=== PATIENT | female | born 1985 | race African-American/Black ===

== ENCOUNTER → 2020-03-25 10:03 | Outpatient (CLI) | payer OTHER, SELFPAY ==
[2020-03-25 11:48] LABS: Creatinine Urine Random 156.1 mg/dL; Protein (Total) Urine Random 8 mg/dL (0-12); Protein Creatinine Ratio Urine 0.05 GRAM/24H
[2020-03-25 12:45] LABS: Add Manual Diff / Slide Review NO; Basophils Absolute Auto 0 /uL (0-100); Basophils Percent Auto 0.1 % (0-2); Eosinophils Absolute Auto 100 /uL (0-450); Hematocrit 29.1 % (36-46); Hemoglobin 9.6 g/dL (12.0-16.0); Lymphocytes Absolute Auto 1300 /uL (1100-4500); Mean Corpuscular Hemoglobin 28.9 PG (26-34); Mean Corpuscular Volume 87.5 fL (80-100); Monocytes Absolute Auto 500 /uL (0-900); Monocytes Percent Auto 6.8 % (3-14); Neutrophils Absolute Auto 6000 /uL (1500-7000); Neutrophils Percent Auto 76.1 % (50-75); Platelet Count 247 X10^3/uL (150-400); Red Blood Cell Count 3.33 X10^6/uL (4.0-5.2); Red Cell Distribution Width 14.7 % (11.6-14.8); White Blood Cell Count 7.9 X10^3/uL (4.5-11.0)
[2020-03-25 13:04] LABS: Alanine Aminotransferase 11 IU/L (<35); Alkaline Phosphatase 97 U/L (38-126); Aspartate Aminotransferase 16 IU/L (14-36); BUN Creatinine Ratio 10.9 (6-22); Bilirubin Total 0.3 mg/dL (0.2-1.3); Blood Urea Nitrogen 5 mg/dL (7-17); Calcium 8.7 mg/dL (8.4-10.2); Carbon Dioxide 25 mmol/L (22-32); Chloride 104 mmol/L (98-107); Estimated Glomerular Filt Rate > 60.0 mL/min (>60); GTT (PREG) 1 Hour PP 50gm Dose 141 mg/dL (76-139); Globulin 2.9 g/dL (1.7-4.1); Glucose 141 mg/dL (70-100); HEMOLYSIS < 15 (0-50); Lactate Dehydrogenase 345 U/L (313-618); Potassium 3.6 mmol/L (3.4-5.1); Sodium 131 mmol/L (137-145); Total Protein 5.9 g/dL (6.3-8.2)
== END ==
PROVIDERS: Referring Provider Obstetrics & Gynecology; Visit Provider Obstetrics & Gynecology
DX: O99.212 Obesity complicating pregnancy, second trimester (principal); Z3A.26 26 weeks gestation of pregnancy; Z87.59 Personal history of other complications of pregnancy, childbirth and the puerperium; Z98.891 History of uterine scar from previous surgery
CPT/HCPCS: 36415; 80053; 82570; 82950; 83615; 84156; 84550; 85025

== ENCOUNTER → 2020-04-08 07:08 | Outpatient (CLI) | payer OTHER, SELFPAY ==
[2020-04-08 08:17] LABS: Glucose Fasting 92 mg/dL (70-100)
[2020-04-08 08:42] LABS: Glucose 1 Hour 155 mg/dL (70-170)
[2020-04-08 10:26] LABS: Glucose Tol Interpretation INTERPRETATION
[2020-04-08 10:47] LABS: Glucose 2 Hour 140 mg/dL (70-140)
[2020-04-08 12:19] LABS: Glucose 3 Hour 152 mg/dL (70-115)
== END ==
PROVIDERS: Referring Provider Obstetrics & Gynecology; Visit Provider Obstetrics & Gynecology
DX: O99.810 Abnormal glucose complicating pregnancy (principal)
CPT/HCPCS: 36415; 82951; 82952

== ENCOUNTER → 2020-04-09 10:23 | Outpatient (CLI) | payer OTHER, SELFPAY | PROVIDERS: Visit Provider Obstetrics & Gynecology | DX: Z34.83 Encounter for supervision of other normal pregnancy, third trimester (principal); R82.4 Acetonuria; R82.2 Biliuria; Z3A.30 30 weeks gestation of pregnancy | CPT/HCPCS: 87086 ==

== ENCOUNTER → 2020-05-16 15:41 | Outpatient (CLI) | payer OTHER, SELFPAY ==
[2020-05-17 12:02] LABS: Strep Grp B PCR POS for Grp B Strep
== END ==
PROVIDERS: Visit Provider Specialist
DX: Z34.83 Encounter for supervision of other normal pregnancy, third trimester (principal); Z3A.36 36 weeks gestation of pregnancy
CPT/HCPCS: 87653

== ENCOUNTER 2020-05-30 15:53 | Inpatient (IN) | payer OTHER, SELFPAY ==
[2020-05-30] MEDS: LACTATED RINGERS 1,000 ML 100 ML IV ×3 (17:10→23:23)
--- NOTE | 2020-05-30 17:25 | P.HPOB_ITS ---
OB HPI Date/Time Date of admission: 05/30/20 Date Patient Seen: 05/30/20 Time Patient Seen: 16:00 History of Present Condition Chief complaint: MATERNITY : 4 Para: 1 Estimated Date of Delivery: 06/13/20 Estimated Gestational Age (weeks): 38 Narrative: Geoff Khan is a 35 year old 021 at 38 weeks 0 days, admitted for repeat section in the setting of early labor and a prior section. Patient presented to her OB visit reporting increasing contractions for approximately 24 hours, with sharp shooting, ?tearing? pains suprapubically with these contractions and question of decreased movement. Denied vaginal bleeding or loss of fluid, no signs or symptoms of PIH. was complicated by late transfer of care from the [facility] and borderline passing of 3 hour GTT after failing 1 hour. Patient's 1st section was for arrest of dilation during a postdates induction, and was complicated by preeclampsia with severe features and hemorrhage. Indications Operative indications ( section): previous uterine surgery History of Present care: good care Dating criteria: based on 1st trimester US only Obstetrical complications: none Medical complications: none Preadmission Labs Blood type: 0 (-) negative -: Antibody screen: negative, GBS status: positive, HBsAG: negative, HIV: negative and RPR/VDLR: negative -: Chlamydia screen: not detected and Gonorrhea screen: not detected -: Rubella: immune and Varicella: immune PAP: Normal (Normal in summer 2019) Integrated screen: Declined aneuploid screening Urine: Normal 1 hr GTT: 141 3 hr GTT: 1 hr (155), 2 hr (140) and 3 hr (152) Fasting blood glucose: 92 Prior (ies) History: G1: 09/24/05, ectopic G2: 09/24/08, early SAB G3: 11/01/1540 wks, pCS for arrest of dilation, 9#2.7oz, F, [place]. preeclampsia with severe features. Evaluation Evaluation Baseline heart rate: 125 Variability: Average (6-10) monitor accelerations: Present monitor decelerations: Variable Contraction Frequency (minutes): 3 Uterine Contraction Intensity: Moderate Category of Tracing: Reactive Status: Category ll Cervical dilation (cm): 0 Comments: Periods of minimal variability with variables with contractions, periods of reactive category 1. [facility] Medical History delivery delivered (~2014) Gestational hypertension (~2014) Infertility, anovulation (~2017) Obesity affecting (~2019) Surgical History [place] teeth extracted (~2001) Family History Mother Hypertension Hx of care home use of blood thinners Diabetes mellitus Varicose veins of both lower extremities Father Hypertension Grandmother No problems noted. Grandfather Hx of care home use of blood thinners Unknown family medical history Grandmother Unknown family medical history Grandfather Unknown family medical history Family/Other Diabetes mellitus Cancer Social History marital status: number of children: 1 household members: spouse and children lives independently: Yes caregiver/support person: No [facility] pets and animals: No education level: master's degree occupational status: employed current occupational exposures/hazards: No special rosalva needs: No seatbelt use: always Smoking Status: Never smoker second hand exposure: No alcohol intake: former substance use type: does not use during the past year weight has: remained stable well-balanced diet: daily or most days caffeine: Yes (1 coffee a few days/week.) Type(s) of exercise: walking and regular exercise frequency: 5-6 times per week duration: 15-30 minutes/day Meds Home Medications and Allergies Home Medications Medication Instructions Recorded Confirmed Type ferrous sulfate 140 mg (45 mg 140 mg PO DAILY 03/01/20 05/23/20 History iron) tablet,extended release prenat.vits,shannan,[id number] 1 tab PO DAILY 03/01/20 05/23/20 History Allergies Allergy/AdvReac Type Severity Reaction Status Date / Time No Known Drug Allergies Allergy Verified 05/30/20 18:51 Review of Systems Constitutional Constitutional: Reports system reviewed and no additional complaints, except as documented Cardiovascular Cardiovascular: Reports system reviewed and no additional complaints, except as documented Respiratory Respiratory: Reports system reviewed and no additional complaints, except as documented Gastrointestinal Gastrointestinal: Reports as per HPI Genitourinary Genitourinary: Reports as per HPI Musculoskeletal Musculoskeletal: Reports system reviewed and no additional complaints, except as documented Neurologic Neurologic: Reports system reviewed and no additional complaints, except as documented Exam Vital Signs (past 8 hours): 119/78, hr 75 Const General: cooperative, healthy appearing and comfortable Resp Effort & Inspection: normal respiratory effort Auscultation: clear to auscultation bilaterally Cardio Rate: regular rate Rhythm: regular rhythm GI Palpation: soft and tender (Over prior incision) Extrem General: normal to inspection Objective Labs Result Diagrams: 05/31/20 07:56 Assessment and Plan Assessment and Plan Assessment and Plan narrative: This patient presents with signs of early labor, concerning for incipient uterine rupture in the setting of her prior section. The patient's variables with contractions, her tearing pain, her gestational age and her contraction pattern indicate that she should be taken for repeat section now instead of waiting for her scheduled repeat in 1 week. Risks and benefits have been reviewed in the office prior to sending the patient to Labor and delivery, and consents had been signed. All questions were answered, and the patient vocalized understanding of the plan. She will be prepped for expeditious repeat section.
[2020-05-30 17:28] VITALS: BP 133/81
[2020-05-30 17:47] LABS: Add Manual Diff / Slide Review NO; Basophils Absolute Auto 0 /uL (0-100); Basophils Percent Auto 0.2 % (0-2); Eosinophils Absolute Auto 100 /uL (0-450); Eosinophils Percent Auto 0.7 % (2-4); Hematocrit 32.4 % (36-46); Hemoglobin 10.3 g/dL (12.0-16.0); Lymphocytes Absolute Auto 1800 /uL (1100-4500); Mean Corpuscular HGB Conc 31.9 % (30-36); Mean Corpuscular Hemoglobin 27.5 PG (26-34); Mean Corpuscular Volume 86.2 fL (80-100); Monocytes Absolute Auto 800 /uL (0-900); Monocytes Percent Auto 11.5 % (3-14); Neutrophils Absolute Auto 4600 /uL (1500-7000); Neutrophils Percent Auto 62.6 % (50-75); Platelet Count 244 X10^3/uL (150-400); Red Blood Cell Count 3.76 X10^6/uL (4.0-5.2); Red Cell Distribution Width 17.7 % (11.6-14.8); White Blood Cell Count 7.3 X10^3/uL (4.5-11.0)
[2020-05-30 19:00] LABS: COVID19 -Nasal RAPID Negative (Negative)
[2020-05-30] MEDS: CEFAZOLIN 2 GM/100 ML FROZ.PIGGY IV (19:40)
--- NOTE | 2020-05-30 20:58 | SUR.OPER ---
Supine on Padded OR bed, head on pillow, safety belt at thigh, arms secured on padded arm boards at <90 degrees abduction. Bump under right buttock. Legs uncrossed with pillow under knees, gel pad to heels, tape over blanket to lower legs.
--- NOTE | 2020-05-30 21:03 | SUR.OPER ---
Viable male delivered at 194. Cord Blood and Placenta sent with L&D nurse.
[2020-05-30 21:39] VITALS: BP 112/74; PULSE 67; RESP 16; TEMP 36.8; O2SAT 100
[2020-05-30 21:40] VITALS: BP 114/72; PULSE 69; RESP 16; O2SAT 100
[2020-05-30 21:45] VITALS: BP 111/73; PULSE 72; RESP 14; O2SAT 100
[2020-05-30 21:50] VITALS: BP 109/66; PULSE 65; RESP 16; TEMP 36.3; O2SAT 99
[2020-05-30] MEDS: KETOROLAC 30 MG/ML VIAL IV (23:20)
[2020-05-30] MEDS: ACETAMINOPHEN 325 MG TABLET 650 MG PO (23:20)
[2020-05-31] MEDS: KETOROLAC 30 MG/ML VIAL IV ×3 (05:22→17:08)
[2020-05-31] MEDS: LACTATED RINGERS 1,000 ML 100 ML IV (06:25)
[2020-05-31 08:02] LABS: Add Manual Diff / Slide Review NO; Basophils Absolute Auto 0 /uL (0-100); Basophils Percent Auto 0.5 % (0-2); Eosinophils Absolute Auto 100 /uL (0-450); Eosinophils Percent Auto 1.6 % (2-4); Hematocrit 25.3 % (36-46); Hemoglobin 8.2 g/dL (12.0-16.0); Lymphocytes Absolute Auto 1800 /uL (1100-4500); Mean Corpuscular HGB Conc 32.6 % (30-36); Mean Corpuscular Hemoglobin 27.6 PG (26-34); Mean Corpuscular Volume 84.7 fL (80-100); Monocytes Absolute Auto 1000 /uL (0-900); Monocytes Percent Auto 12.5 % (3-14); Neutrophils Absolute Auto 5200 /uL (1500-7000); Neutrophils Percent Auto 63.4 % (50-75); Platelet Count 190 X10^3/uL (150-400); Red Blood Cell Count 2.99 X10^6/uL (4.0-5.2); Red Cell Distribution Width 17.8 % (11.6-14.8); White Blood Cell Count 8.3 X10^3/uL (4.5-11.0)
--- NOTE | 2020-05-31 08:38 | P.OP_ITS ---
Operative Date/Time/Diagnoses Date of procedure: 05/30/20 Time of procedure: 20:00 Pre-op diagnosis: Labor, prior section Post-op diagnosis: same Procedure & Clinicians Procedure: Repeat section Same procedure as scheduled: Yes Indications: Labor, 38 weeks gestation, prior section Surgeon: Alyson Trevino [employer] Advisor: Gissel Freeman Anesthesia Type: Spinal Operative Notes Findings: Quite thin lower uterine segment, translucent at presumed prior uterine incision. Moderate amount of scar tissue, especially between bladder and uterus. Normal tubes and ovaries. Male infant in cephalic presentation (Mario), weight 8 lb 1 oz, Apgars 8 and 9. Closure Type: primary Specimen(s): none sent Estimated Blood Loss (mL): 750 Procedure in detail: EBL: 750ccs Fluids:1800ccs UOP: 100ccs clear yellow urine Procedures: The patient was taken to the operating room where spinal anesthesia was placed and found to be adequate. She was prepped and draped in the normal sterile fashion in the dorsal supine position with a leftward tilt. A Pfannenstiel skin incision was made with a scalpel and carried through to the underlying layer of fascia. The fascia was incised in the midline and the incision extended laterally with Kendrick scissors. The superior aspect of this incision was grasped with Carmen clamps, elevated, and the underlying rectus muscles dissected off bluntly and with the curved Kendrick scissors. Attention was then turned to the inferior aspect of this incision which, in a similar fashion, was grasped, tented up with the Carmen clamps, and the rectus muscles dissected off bluntly and with the curved Kendrick scissors. The rectus muscles were then in the midline, and the peritoneum identified, tented up, and entered sharply with Metzenbaum scissors. The peritoneal incision was extended superiorly and inferiorly with good visualization of the bladder. A moderate amount of scar tissue was reduced to allow visualization of the bladder flap. The bladder blade was inserted and the vesicouterine peritoneum identified, grasped with pickups, and entered sharply with the Metzenbaum scissors. This incision was extended laterally, and the bladder flap created digitally. The bladder blade was then reinserted and the lower uterine segment incised in transverse fashion with the scalpel. The uterine incision was bluntly extended laterally. The bladder blade was removed, and the 's head delivered atraumatically with assistance of a vacuum. After 30 seconds of delayed cord clamping, the cord was clamped and cut. The nose and mouth were suctioned as needed with a bulb synringe, and the infant was handed off to awaiting pediatricians. The placenta was then removed spontaneously, and the uterus was exteriorized and cleared of all clots and debris. The uterine incision was repaired with 1-0 chromic in a running, locked fashion a 2nd layer of the same suture was used to obtain excellent hemostasis. The uterus was returned to the abdomen, and the gutters were cleared of all clots and debris. Due to the character of the bladder flap and scar tissue, we decided against repairing the bladder flap and the peritoneum. The fascia reapproximated with 0 Vicryl in a running fashion. The subcutaneous layer was placed with 3 0 Vicryl in an interrupted fashion and the skin was closed with 4-0 biosyn in a running fashion. The patient tolerated the procedure well. Sponge lap and needle counts were correct x2. 2 g of Ancef were given at commencement of the case. The patient was taken to the recovery room in stable condition. Dr. Freeman was present throughout the case. Her presence was integral to dissection through scar tissue and delivery of the . Complications: none Post-operative Condition: stable Disposition: PACU Plan for aftercare: Routine postoperative care.
--- NOTE | 2020-05-31 08:38 | P.PNOB_ITS ---
Subjective - OB Subjective Patient comments: no complaints, pain well controlled and tolerating diet baby status: doing well feeding status: exclusively breast feeding Narrative: This patient is status post an uncomplicated repeat section at 38 weeks gestation after the patient presented in early labor. Date Patient Seen: 05/31/20 Time Patient Seen: 08:39 Interval history: This patient is postop day 1 status post uncomplicated repeat section at 38 weeks 0 days after presenting to her OB visit in early labor. The patient is recovering well, passing flatus, tolerating p.o., good pain control. For Mullins removal and voiding trial this a.m. no PIH complaints. Exam Vital Signs (past 8 hours): 114/79, heart rate 89 Oxygen Delivery Method Room Air Const General: cooperative, healthy appearing and comfortable Resp Effort & Inspection: normal respiratory effort Auscultation: clear to auscultation bilaterally Cardio Rate: regular rate Rhythm: regular rhythm GI Inspection: incision (Clean, dry, intact, covered by Aquacel) and obesity Palpation: soft and No tender Other: Fundus firm, well below U Skin General: no rashes or lesions noted Extrem General: normal to inspection Objective Labs Result Diagrams: 05/31/20 07:56 Labs: Laboratory Results - last 24 hr 05/30/20 05/30/20 05/30/20 14:10 17:10 17:10 WBC 7.3 RBC 3.76 L Hgb 10.3 L Hct 32.4 L MCV 86.2 MCH 27.5 MCHC 31.9 RDW 17.7 H Plt Count 244 Neut % (Auto) 62.6 Lymph % (Auto) 25.0 [place] % (Auto) 11.5 Eos % (Auto) 0.7 L Baso % (Auto) 0.2 Neut # (Auto) 4600 Lymph # (Auto) 1800 [place] # (Auto) 800 Eos # (Auto) 100 Baso # (Auto) 0 SARS-CoV-2 (PCR) Negative Blood Type O Negative Antibody Screen Negative Maternal Bleed 05/31/20 05/31/20 07:56 07:56 WBC 8.3 RBC 2.99 L Hgb 8.2 L Hct 25.3 L MCV 84.7 MCH 27.6 MCHC 32.6 RDW 17.8 H Plt Count 190 Neut % (Auto) 63.4 Lymph % (Auto) 22.0 L [place] % (Auto) 12.5 Eos % (Auto) 1.6 L Baso % (Auto) 0.5 Neut # (Auto) 5200 Lymph # (Auto) 1800 [place] # (Auto) 1000 H Eos # (Auto) 100 Baso # (Auto) 0 SARS-CoV-2 (PCR) Blood Type Antibody Screen Maternal Bleed Negative Assessment & Plan Assessment and Plan (1) delivery delivered: Status: Acute Plan day: 1 plan OB: routine postop care Comments: This patient is recovering appropriately approximately 12 hours after repeat section. Voiding trial this morning, ambulation encouraged, discussed likely discharge tomorrow. Time Spent With Patient Time: Total time spent is greater than 50% in coordination of care (as documented) at patient's floor/unit and/or counseling patient: Time with patient: 15-24 minutes
[2020-05-31] MEDS: DOCUSATE 100 MG CAPSULE PO (09:02)
[2020-05-31] MEDS: PRENATAL VIT,CALC/IRON/FOLIC 1 TABLET 1 TAB PO (09:03)
[2020-05-31] MEDS: RHO(D) IMMUNE GLOBULIN 1,500 UNIT SYRINGE 1500 UNIT IM (20:03)
[2020-05-31] MEDS: IBUPROFEN 600 MG TABLET PO (23:15)
[2020-06-01] MEDS: ACETAMINOPHEN 325 MG TABLET 650 MG PO ×3 (00:30→21:29)
[2020-06-01] MEDS: IBUPROFEN 600 MG TABLET PO ×3 (05:26→17:57)
[2020-06-01] MEDS: DOCUSATE 100 MG CAPSULE PO ×2 (07:59→21:29)
[2020-06-01] MEDS: PRENATAL VIT,CALC/IRON/FOLIC 1 TABLET 1 TAB PO (07:59)
--- NOTE | 2020-06-01 11:19 | P.DS_ITS ---
Discharge Providers Provider Date of admission: 05/30/20 15:53 Discharge Date: 06/02/20 Primary care physician: Doctor Onofre MD Consults: 05/30/20 23:02 Consult to Cartography Professor Routine Comment: 05/31/20 20:24 Consult to Cartography Professor Routine Comment: Discharge provider: Alysno Trevino MD Summary Hospital Course Date Patient Seen: 06/02/20 Time Patient Seen: 08:15 Diagnoses: Status post repeat section Hospital Course: This patient is a 35-year-old now para 2 who was admitted at 38 weeks gestation in evident early labor with concern for incipient uterine rupture given the patient's symptoms. The patient was taken for repeat section, which involved a reduction of a moderate amount of scar tissue but was otherwise uncomplicated. Patient has a history of preeclampsia in the period, and no her blood pressures were closely monitored, she had no signs or symptoms of preeclampsia. Due to uptrending blood pressures, she was started on 30mg XR nifedipine PO to good effect. She was discharged on postop day 3 with routine precautions, home blood pressure monitoring, and plans for blood pressure check in the clinic. Peripartum Data Delivery Method: Section Procedures: Repeat section complications: none [place] Mario: Gender: Male Disposition of : home Discharge Diagnosis (1) delivery delivered: Status: Acute Status at Discharge Cognitive/behavioral status at discharge: oriented Functional status at discharge: independent ambulation Overall status at discharge: patient is progressing back to baseline Time Spent with Patient Time attestation: Total time spent providing and/or coordinating discharge services: Objective Labs Result Diagrams: 06/01/20 12:20 06/01/20 12:20 Exam Vital Signs (past 8 hours): 125/86, HR 88 Oxygen Delivery Method Room Air Narrative Exam Narrative: Patient is resting in bed. Reports ambulating, voiding, passing flatus, mild lochia. Breast-feeding without difficulty, tolerating p.o.. No headaches, visual changes, right upper quadrant pain. Good incisional pain control on p.o. meds. Const General: cooperative, healthy appearing and comfortable GI Inspection: incision (Clean, dry, intact.) Palpation: soft and No tender Other: Fundus firm, well below U Extrem General: normal to inspection (Trace pedal edema) Discharge Plan Discharge Plan Patient Disposition: Home Discharge orders & Medications Prescriptions: New oxycodone 5 mg tablet 5 mg PO Q6H PRN (Reason: pain) Qty: 14 RF: 0 nifedipine 30 mg tablet extended release 30 mg PO DAILY Qty: 30 RF: 0 Continued prenat.vits,shannan,[id number] Tablet 1 tab PO DAILY RF: 0 ferrous sulfate 140 mg (45 mg iron) tablet extended release 140 mg PO DAILY RF: 0 Follow up/Referrals: Alyson Trevino MD [Physician] - 1 Week (bandage removal/BP check) Doctor Adhikari MD [Primary Care Provider] - Diet/Activity/Treatments Diet: Regular Activity: Nothing in the vagina for 6 weeks. Avoid lifting more than 10 lbs for 6 weeks. If you have increasing bleeding, fevers, chills, headaches, visual changes, new or worsening abdominal pain, trouble breathing, or any other symptoms, call or come to the emergency department. Skin/Wound/Dressing Care Report to your healthcare provider any signs of infection, such as:: chills, fever, night sweats, increased pain, unusual drainage and unusual redness Dressing: Bandage to be removed in 1 week in clinic. OK to shower, pat area dry. Visit Report/Discharge Packet Instructions: DI for Discharge Data Primary Care Provider: Doctor Onofre
--- NOTE | 2020-06-01 12:17 | PM.OBPN.1 ---
Subjective - OB Subjective Patient comments: no complaints, pain well controlled, tolerating diet and flatus present baby status: doing well feeding status: exclusively breast feeding Narrative: Patient is POD#2 s/p uncomplicated repeat section after presenting in early labor. Patient is recovering appropriately, but has increasing blood pressures in the setting of a history of preeclampsia. Date Patient Seen: 06/01/20 Time Patient Seen: 12:17 Interval history: Patient is resting in bed. Reports ambulating, voiding, passing flatus, mild lochia. Breast-feeding without difficulty, tolerating p.o.. No headaches, visual changes, right upper quadrant pain. Good incisional pain control on p.o. meds. Exam Vital Signs (past 8 hours): 130s-140s/80s-90s Oxygen Delivery Method Room Air Const General: cooperative, healthy appearing and comfortable Resp Effort & Inspection: normal respiratory effort Auscultation: clear to auscultation bilaterally Cardio Rate: regular rate Rhythm: regular rhythm GI Inspection: other (incision c/d/i, fundus firm and well below u.) Palpation: soft and No tender Skin General: no rashes or lesions noted Objective Labs Result Diagrams: 06/01/20 12:20 06/01/20 12:20 Assessment & Plan Assessment and Plan (1) delivery delivered: Status: Acute Assessment and plan: This patient is recovering well from her section, meeting all postoperative goals. However, she has uptrending blood pressures, concerning given her history of preeclampsia presenting on POD#2-3 with her prior child. She has normal PEC labs and no other symptoms, but given her history and other risk factors, we discussed initiating a low dose antihypertensive and having her remain inpatient until tomorrow for further monitoring. Precautions were discussed, and the patient vocalized understanding of the plan. - 30mg ER nifedipine now, to be daily in AM starting tomorrow - q4 monitoring VS while awake today Plan day: 2 plan OB: other Time Spent With Patient Time: Total time spent is greater than 50% in coordination of care (as documented) at patient's floor/unit and/or counseling patient: Time with patient: 25 - 35 minutes
[2020-06-01] MEDS: NIFEdipine 30 MG TAB ER PO (12:27)
[2020-06-01 12:43] LABS: Add Manual Diff / Slide Review NO; Basophils Absolute Auto 100 /uL (0-100); Basophils Percent Auto 0.9 % (0-2); Eosinophils Absolute Auto 200 /uL (0-450); Eosinophils Percent Auto 1.8 % (2-4); Hematocrit 28.4 % (36-46); Hemoglobin 9.2 g/dL (12.0-16.0); Lymphocytes Absolute Auto 1600 /uL (1100-4500); Lymphocytes Percent Auto 14.9 % (25-40); Mean Corpuscular HGB Conc 32.4 % (30-36); Mean Corpuscular Hemoglobin 27.5 PG (26-34); Mean Corpuscular Volume 84.9 fL (80-100); Monocytes Absolute Auto 1000 /uL (0-900); Monocytes Percent Auto 9.9 % (3-14); Neutrophils Absolute Auto 7500 /uL (1500-7000); Neutrophils Percent Auto 72.5 % (50-75); Platelet Count 239 X10^3/uL (150-400); Red Blood Cell Count 3.34 X10^6/uL (4.0-5.2); Red Cell Distribution Width 18.1 % (11.6-14.8); White Blood Cell Count 10.4 X10^3/uL (4.5-11.0)
[2020-06-01 12:47] LABS: Aspartate Aminotransferase 30 IU/L (14-36); BUN Creatinine Ratio 13.6 (6-22); Blood Urea Nitrogen 8 mg/dL (7-17); Estimated Glomerular Filt Rate > 60.0 mL/min (>60); Lactate Dehydrogenase 532 U/L (313-618)
[2020-06-02] MEDS: IBUPROFEN 600 MG TABLET PO ×2 (00:26→07:03)
[2020-06-02] MEDS: ACETAMINOPHEN 325 MG TABLET 650 MG PO (05:36)
[2020-06-02] MEDS: OXYCODONE IR 5 MG TABLET PO (07:03)
[2020-06-02] MEDS: DOCUSATE 100 MG CAPSULE PO (07:39)
[2020-06-02] MEDS: NIFEdipine 30 MG TAB ER PO (07:40)
== END 2020-06-02 11:15 | disposition home or self-care (01) | DRG 788 ==
PROVIDERS: Admitting Provider Obstetrics & Gynecology; Referring Provider Obstetrics & Gynecology; Visit Provider Obstetrics & Gynecology
PROC: 10D00Z1 Extraction of Products of Conception, Low, Open Approach (ICD-10-PCS; CPT 59514; principal; 2020-05-30 19:00)
DX: O34.219 Maternal care for unspecified type scar from previous cesarean delivery (principal); Z3A.38 38 weeks gestation of pregnancy; Z37.0 Single live birth; O99.824 Streptococcus B carrier state complicating childbirth; Z20.822 Contact with and (suspected) exposure to COVID-19
CPT/HCPCS: 36415; 59050; 59514; 59515; 83615; 84450; 84550; 85025; 85461; 86850; 86900; 86901; 87635; C9803; G0379; J0690; J1885; J2274; J2590; J2790